=== PATIENT | male | born 1950 | race Caucasian/White ===

== ENCOUNTER 2016-10-22 15:44 | Emergency (ER) | payer MEDICARE, OTHER ==
[~2016-10-22] VITALS: Ht 177.8 cm; Wt 66.5 kg
[~2016-10-22 15:44] MED LIST: AMAN100C65 PO; CLON-202 PO; CLON0.5T4 PO; ENTA200T PO; ESCI10TA44 PO; HYDR-4246 PO; TAMS0.4C46 PO; [UNRECOGNIZED DRUG - CODE] PO
[2016-10-22 15:46] VITALS: Ht 177.8 cm; Wt 66.5 kg
--- OUTSIDE RECORDS SUMMARY | 2016-10-22 15:47 | XMS REPORT | Continuity of Care Document ---
Author Author [facility] Address Unknown Phone Unavailable Allergies Active Description Code Type Severity Reaction Onset Reported/Identified Relationship to Patient Clinical Status Yes ADHESIVE 1/2"[id number] Drug Allergy N/A N/A Yes NKDA N/A N/A Medications Medication Packaging Start Date Stop Date Route Dosage Sig PP_[id number] 03/07/2011 ORAL daily PP_00000001357 03/09/2014 Oral PP_00000004762 TAB 03/13/2014 ORAL three times daily PP_00000011168 03/30/2014 Oral PP_00000006009 04/07/2014 ORAL bedtime PP_00000006467 04/10/2014 ORAL three times daily PP_00000011841 07/10/2014 ORAL daily PP_00000010378 09/28/2014 Oral PP_00000006009 10/28/2014 ORAL bedtime PP_00000010378 12/24/2014 Oral PP_00000011168 01/11/2015 Oral PP_00000001357 TAB 03/23/2015 Oral three times daily Problems Procedures Results Encounters ACCT No. Visit Date/Time Discharge Status Pt. Type Provider Facility Loc./Unit Complaint [id number] 08/16/2016 16:48:25 08/16/2016 16:48:25 DIS Outpatient [id number] 08/15/2016 13:56:10 08/15/2016 13:56:10 DIS Outpatient [id number] 07/25/2016 11:15:29 07/25/2016 11:15:29 DIS Outpatient [id number] 06/22/2016 09:56:18 06/22/2016 09:56:18 DIS Outpatient [id number] 06/21/2016 15:39:59 06/21/2016 15:40:00 DIS Outpatient [id number] 06/21/2016 14:02:20 06/21/2016 14:02:21 DIS Outpatient [id number] 06/21/2016 13:58:05 06/21/2016 13:58:06 DIS Outpatient [id number] 04/27/2016 16:58:23 04/27/2016 16:58:23 DIS Outpatient [id number] 04/27/2016 14:33:16 04/27/2016 14:33:16 DIS Outpatient [id number] 04/27/2016 13:54:38 04/27/2016 13:54:38 DIS Outpatient [id number] 04/27/2016 13:13:36 04/27/2016 13:13:36 DIS Outpatient [id number] 04/27/2016 13:13:35 04/27/2016 13:13:35 DIS Outpatient [id number] 04/27/2016 13:12:36 04/27/2016 13:12:36 DIS Outpatient [id number] 04/27/2016 12:16:52 04/27/2016 12:16:52 DIS Outpatient [id number] 04/27/2016 12:16:38 04/27/2016 12:16:38 DIS Outpatient [id number] 04/27/2016 12:15:53 04/27/2016 12:15:53 DIS Outpatient [id number] 04/27/2016 12:15:52 04/27/2016 12:15:52 DIS Outpatient [id number] 04/21/2016 11:48:29 04/21/2016 11:48:29 DIS Outpatient [id number] 04/21/2016 10:26:42 04/21/2016 10:26:42 DIS Outpatient [id number] 04/17/2016 14:52:29 04/17/2016 14:52:29 DIS Outpatient [id number] 04/17/2016 14:52:27 04/17/2016 14:52:27 DIS Outpatient [id number] 02/18/2016 11:12:14 02/18/2016 11:12:14 DIS Outpatient [id number] 02/17/2016 13:37:09 02/17/2016 13:37:10 DIS Outpatient [id number] 02/17/2016 13:37:05 02/17/2016 13:37:05 DIS Outpatient [id number] 02/17/2016 12:21:51 02/17/2016 12:21:52 DIS Outpatient [id number] 02/16/2016 15:24:56 02/16/2016 15:24:56 DIS Outpatient [id number] 07/26/2015 09:07:24 07/26/2015 09:07:24 DIS Outpatient [id number] 07/22/2015 06:37:05 07/22/2015 06:37:05 ACT Outpatient [id number] 07/16/2015 08:34:19 07/16/2015 08:34:19 DIS Outpatient [id number] 07/15/2015 16:37:53 07/15/2015 16:37:53 DIS Outpatient [id number] 07/13/2015 10:43:39 07/13/2015 10:43:41 DIS Outpatient [id number] 07/12/2015 13:15:11 07/12/2015 13:15:11 DIS Outpatient [id number] 07/12/2015 09:38:26 07/12/2015 09:38:26 DIS Outpatient [id number] 07/12/2015 09:38:25 07/12/2015 09:38:25 DIS Outpatient [id number] 07/12/2015 09:23:34 07/12/2015 09:23:37 DIS Outpatient [id number] 07/12/2015 09:21:39 07/12/2015 09:21:39 DIS Outpatient [id number] 02/03/2015 13:12:44 02/03/2015 23:59:59 CLS Outpatient [id number] 02/03/2015 09:30:05 02/03/2015 23:59:59 CLS Outpatient [id number] 02/03/2015 08:56:01 02/03/2015 23:59:59 CLS Outpatient [id number] 02/01/2015 14:16:08 02/01/2015 23:59:59 CLS Outpatient [id number] 02/01/2015 13:48:26 02/01/2015 23:59:59 CLS Outpatient [id number] 02/01/2015 13:06:54 02/01/2015 13:06:54 DIS Outpatient [id number] 02/01/2015 13:01:37 02/01/2015 13:01:37 DIS Outpatient [id number] 06/18/2014 15:49:00 06/18/2014 23:59:59 CLS Outpatient [id number] 04/13/2014 15:43:07 04/13/2014 23:59:59 CLS Outpatient [id number] 04/13/2014 15:43:00 04/13/2014 23:59:59 CLS Outpatient [id number] 04/13/2014 15:42:59 04/13/2014 23:59:59 CLS Outpatient [id number] 04/13/2014 15:43:09 04/13/2014 15:43:09 DIS Outpatient [id number] 04/10/2014 12:51:46 04/10/2014 12:51:46 DIS Outpatient [id number] 04/10/2014 12:40:36 04/10/2014 12:40:36 DIS Outpatient [id number] 04/10/2014 12:40:16 04/10/2014 12:40:16 DIS Outpatient [id number] 04/10/2014 12:05:03 04/10/2014 12:05:03 DIS Outpatient [id number] 04/10/2014 11:56:33 04/10/2014 11:56:34 DIS Outpatient [id number] 04/10/2014 11:56:15 04/10/2014 11:56:16 DIS Outpatient [id number] 04/10/2014 11:56:04 04/10/2014 11:56:07 DIS Outpatient [id number] 04/10/2014 11:55:53 04/10/2014 11:55:55 DIS Outpatient [id number] 04/10/2014 10:56:51 04/10/2014 10:56:51 DIS Outpatient [id number] 04/10/2014 10:56:26 04/10/2014 10:56:27 DIS Outpatient [id number] 08/21/2016 16:26:20 DIS Outpatient [id number] 08/16/2016 15:53:25 DIS Outpatient [id number] 08/16/2016 15:46:49 DIS Outpatient [id number] 08/16/2016 14:38:00 Document Registration [id number] 08/16/2016 14:32:21 DIS Outpatient [id number] 08/16/2016 14:22:45 DIS Outpatient [id number] 08/16/2016 14:22:28 DIS Outpatient [id number] 08/16/2016 14:21:13 DIS Outpatient [id number] 08/16/2016 14:20:57 DIS Outpatient [id number] 08/16/2016 14:19:40 DIS Outpatient [id number] 06/21/2016 16:09:27 DIS Outpatient [id number] 06/21/2016 14:09:00 Document Registration [id number] 04/28/2016 15:20:55 Document Registration [id number] 04/28/2016 11:07:59 DIS Outpatient [id number] 04/28/2016 11:07:56 DIS Outpatient [id number] 04/28/2016 10:05:29 DIS Outpatient [id number] 04/28/2016 06:32:00 Document Registration [id number] 04/27/2016 17:27:08 Document Registration [id number] 03/27/2016 16:38:49 DIS Outpatient [id number] 03/27/2016 16:36:56 DIS Outpatient [id number] 03/16/2016 08:36:53 ACT Outpatient [id number] 03/16/2016 08:32:11 ACT Outpatient [id number] 03/16/2016 08:32:10 ACT Outpatient [id number] 03/16/2016 08:32:09 ACT Outpatient [id number] 03/16/2016 08:28:32 ACT Outpatient [id number] 03/16/2016 08:27:03 ACT Outpatient [id number] 03/16/2016 08:26:08 ACT Outpatient [id number] 03/16/2016 08:26:04 ACT Outpatient [id number] 03/16/2016 07:36:32 ACT Outpatient [id number] 03/16/2016 07:33:14 ACT Outpatient [id number] 03/16/2016 07:32:19 ACT Outpatient [id number] 03/02/2016 14:14:38 Document Registration [id number] 03/02/2016 13:27:00 Document Registration [id number] 03/02/2016 13:26:00 Document Registration [id number] 02/18/2016 09:48:18 DIS Outpatient [id number] 02/18/2016 08:03:41 DIS Outpatient [id number] 02/18/2016 08:02:58 Document Registration [id number] 02/17/2016 12:28:00 Document Registration [id number] 02/17/2016 12:25:20 DIS Outpatient [id number] 02/17/2016 12:18:42 DIS Outpatient [id number] 02/17/2016 12:18:21 DIS Outpatient [id number] 08/27/2015 15:44:56 DIS Outpatient [id number] 08/27/2015 15:44:55 DIS Outpatient [id number] 07/26/2015 09:07:23 DIS Outpatient [id number] 07/13/2015 08:25:14 Document Registration [id number] 07/12/2015 17:15:54 Document Registration [id number] 07/12/2015 12:20:00 Document Registration [id number] 03/23/2015 12:08:36 Document Registration [id number] 03/23/2015 12:08:33 Document Registration [id number] 03/23/2015 12:08:30 Document Registration [id number] 03/23/2015 12:08:27 Document Registration [id number] 03/23/2015 12:08:23 Document Registration [id number] 03/23/2015 12:08:20 Document Registration [id number] 03/23/2015 12:08:17 Document Registration [id number] 03/23/2015 12:08:14 Document Registration [id number] 03/23/2015 12:08:11 Document Registration [id number] 03/23/2015 12:08:08 Document Registration [id number] 03/23/2015 12:08:05 Document Registration [id number] 03/23/2015 12:08:02 Document Registration [id number] 03/23/2015 12:07:59 Document Registration [id number] 03/23/2015 12:07:55 Document Registration [id number] 02/03/2015 09:11:42 Document Registration [id number] 02/03/2015 08:55:59 Document Registration [id number] 02/02/2015 07:10:34 Document Registration [id number] 02/02/2015 07:10:31 Document Registration [id number] 02/02/2015 07:10:28 Document Registration [id number] 02/01/2015 13:09:00 Document Registration [id number] 02/01/2015 13:05:00 Document Registration [id number] 01/12/2015 07:01:18 Document Registration [id number] 01/12/2015 07:01:15 Document Registration [id number] 01/12/2015 07:01:12 Document Registration [id number] 01/12/2015 07:01:09 Document Registration [id number] 01/12/2015 07:01:07 Document Registration [id number] 01/12/2015 07:01:04 Document Registration [id number] 01/12/2015 07:01:01 Document Registration [id number] 01/12/2015 07:00:59 Document Registration [id number] 01/12/2015 07:00:21 Document Registration [id number] 12/24/2014 08:25:02 Document Registration [id number] 12/24/2014 08:24:59 Document Registration [id number] 12/24/2014 08:24:55 Document Registration [id number] 10/28/2014 13:06:12 Document Registration [id number] 10/28/2014 13:06:09 Document Registration [id number] 10/28/2014 13:06:06 Document Registration [id number] 10/28/2014 13:06:02 Document Registration [id number] 09/30/2014 12:55:22 Document Registration [id number] 09/28/2014 10:27:18 Document Registration [id number] 09/28/2014 10:26:54 Document Registration [id number] 09/28/2014 10:26:25 Document Registration [id number] 07/13/2014 10:31:08 Document Registration [id number] 07/11/2014 08:45:08 Document Registration [id number] 04/10/2014 11:03:00 Document Registration [id number] 04/10/2014 11:02:00 Document Registration
--- OUTSIDE RECORDS SUMMARY | 2016-10-22 15:48 | XMS REPORT | Referral Summary ---
Author Organization Unknown Address Unknown Phone Unavailable Care Team Providers Care [place] Tier Name Role Phone Kate New Primary Care Physician [phone] Encounter VC Date(s): 07/27/14 - 07/27/14 [facility] [address] [place] [address] Discharge Disposition: Home or Self Care Attending Physician: Kyle Gregorio MD Admitting Physician: Kyle Gregorio MD Vital Signs Most recent to 1 oldest [Reference Range]: Temperature Skin 36.4 degC [36-37 degC] (07/27/14 10:43 AM) Temperature Temporal 37.0 degC Artery [36.3-37.8 (07/27/14 12:30 PM) degC] Peripheral Pulse 63 bpm Rate [60-100 bpm] (07/27/14 6:40 AM) Heart Rate Monitored 80 bpm [60-100 bpm] (07/27/14 12:30 PM) Respiratory Rate 20 br/min [14-20 br/min] (07/27/14 12:30 PM) Blood Pressure 118/74 mmHg [90-140/60-90 mmHg] (07/27/14 12:30 PM) Most recent to 1 oldest [Reference Range]: SpO2 93 % (07/27/14 12:00 PM) Problem List Condition Effective Dates Status Health Status Informant HTN Active patient (hypertension)(Confi rmed) Parkinson's Active patient disease(Confirmed) Allergies, Adverse Reactions, Alerts No Known Allergies Medications acetaminophen 325 -650mg, Oral, q4hr, Pain Moderate (4-6), 0 Refill(s) Start Date: 07/27/14 Status: Ordered amantadine 100 mg oral tablet 2 tabs, Oral, BID, 0 Refill(s) Start Date: 07/24/14 Status: Ordered carvedilol 25 mg oral tablet 0.5 tabs, Oral, TID, 0 Refill(s) Start Date: 07/24/14 Status: Ordered clonazePAM 0.5 mg oral tablet 1 tabs, Oral, Bedtime (once a day), 0 Refill(s) Start Date: 07/24/14 Status: Ordered Comtan 200 mg, Oral, TID, 0 Refill(s) Start Date: 07/24/14 Status: Ordered FiberCon 625 mg oral tablet 1 tabs, Oral, 3x/Wk, 0 Refill(s) Start Date: 07/24/14 Status: Ordered Flomax 0.4 mg oral capsule 1 caps, Oral, Daily, 0 Refill(s) Start Date: 07/24/14 Status: Ordered lactulose 10 g/15 mL oral syrup 20 mL, Oral, Daily, # 480 mL, 0 Refill(s) Start Date: 07/24/14 Status: Ordered Lexapro 10 mg oral tablet 1 tabs, Oral, Daily, 0 Refill(s) Start Date: 07/24/14 Status: Ordered Results Chemistry Most recent to 1 oldest [Reference Range]: Sodium Lvl [136-144 138 mEq/L mEq/L] (07/27/14 7:14 AM) Potassium Lvl 3.9 mEq/L [3.6-5.1 mEq/L] (07/27/14 7:14 AM) Chloride [99-109 104 mEq/L mEq/L] (07/27/14 7:14 AM) CO2 [22-32 mEq/L] 29 mEq/L (07/27/14 7:14 AM) AGAP [3-20] 5 (07/27/14 7:14 AM) BUN [4-20 mg/dL] 17 mg/dL (07/27/14 7:14 AM) Glucose Lvl [70-100 101 mg/dL mg/dL] *HI* (07/27/14 7:14 AM) Creatinine Lvl 1.21 mg/dL [0.64-1.27 mg/dL] (07/27/14 7:14 AM) eGFR [>60] >60 1 (07/27/14 7:14 AM) Calcium Lvl 9.2 mg/dL [8.6-10.0 mg/dL] (07/27/14 7:14 AM) Blood Glucose, 96 mg/dL Capillary [70-100 (07/27/14 6:49 AM) mg/dL] 1Result Comment: Multiply eGFR results by 1.21 for race. Immunizations No data available for this section Procedures Procedure Date Related Diagnosis Body Site Replacement Stimulator Deep Brain Genera 07/27/14 (Bilateral)1 BATTERY REPLACEMENT X 2 Colonoscopy LEFT HAND - SURGERY - CUT STIMULATOR PLACEMENT 1auto-populated from documented surgical case Social History Social History Type Response Smoking Status Never smoker Assessment and Plan No data available for this section
--- OUTSIDE RECORDS SUMMARY | 2016-10-22 15:48 | XMS REPORT | Continuity of Care Document ---
Author Author [facility] Organization [facility] Address Unknown Phone Unavailable Support Name Relationship Address Phone SANDRA VARGAS DO Caregiver [facility] [address] [place], [place] [phone] RENATE ARCE MD Caregiver [address] [place] [address] [place] [phone] HOLLEY LARA Next Of Kin [address] [place] [address] Insurance Providers Payer Name Policy Number Subscriber Name Relationship Medicare [id number] Nimesh Lara 17 Self [place] [id number] Nimesh Lara 17 Self Advance Directives Directive Response Recorded Date/Time Advanced Directives Type DNR Documentation Living Will DPOA for Healthcare 8:45pm Problems Medical Problems Problem Onset Date Status Contusion of ribs Unknown Active Abrasion Unknown Active Constipation Unknown Active Fall Unknown Active Medications Medication Dose Route Sig Days/Qty Instructions Order Date Discontinued Date Status Amantadine Hcl 100 Mg PO TWICE A DAY 04/19/12 Active Tamsulosin Hcl 0.4 Mg PO DAILY 04/19/12 Active Entacapone 200 Mg PO THREE TIMES A DAY 04/19/12 Active Carbidopa/Levodopa 0.5 Tab PO THREE TIMES A DAY 04/19/12 Active Clonazepam 0.5 Mg PO BEDTIME 04/19/12 Active Escitalopram Oxalate 10 Mg PO DAILY 04/19/12 Active Clonazepam 0.5 Tab PO BEDTIME 08/18/14 Active Hydrocodone/Acetaminophen 1-2 Tab PO EVERY 4-6 HOURS For PAIN 30 Qty Active Social History Social History Problem Response Recorded Date/Time Chewing Tobacco Status No 05/20/2012 3:47pm Hx Substance Use No 08/18/2014 9:14pm Hx Alcohol Use No 08/18/2014 9:14pm Has the pt used tobacco in the last 12 months No 05/20/2012 3:47pm Query Response Start Date Stop Date Smoking Status Never smoker Hospital Discharge Instructions No hospital discharge instructions. Plan of Care No plan of care. Functional Status Query Response Date Recorded Physical Hygiene Self August 18, 2014 9:14pm Disabilities Visual August 18, 2014 9:14pm Devices Used Glasses Walker August 18, 2014 9:14pm Dressing Self August 18, 2014 9:14pm Ambulation Self August 18, 2014 9:14pm Diet Self August 18, 2014 9:14pm Mental Status Alert August 18, 2014 9:14pm Disabilities Visual August 18, 2014 9:14pm Devices Used Glasses Walker August 18, 2014 9:14pm Physical Hygiene Self August 18, 2014 9:14pm Dressing Self August 18, 2014 9:14pm Ambulation Self August 18, 2014 9:14pm Diet Self August 18, 2014 9:14pm Allergies, Adverse Reactions, Alerts Allergen Type Severity Reaction Status Last Updated DERMABOND Allergy Unknown Active 08/18/14 Immunizations Name Given Type Hx Influenza Vaccination N Pt refused Historical Hx Pneumococcal Vaccination No Historical Hx Tetanus, Diptheria, Pertussis Y 07/2014 Historical Hx Influenza Vaccination N Pt refused Historical Hx Tetanus, Diptheria, Pertussis Y 07/2014 Historical Vital Signs Acute Vital Signs Vital Response Date/Time Temperature (Fahrenheit) 97.4 deg F (96.8 - 99.1) Temperature (Calculated Celsius) 36.90263 degrees C (36.0 - 37.3) Pulse Rate (adult) 62 bpm (60 - 100) Respiratory Rate 20 breaths/min (10 - 20) O2 Sat by Pulse Oximetry 96 % (90 - 100) Blood Pressure 149/86 mm Hg Height 5 ft 10 in Weight 150 lb Body Mass Index 21.0 kg/m^2 Results Test Source Date Result Interp. Ref. Range Comments Alanine Aminotransferase (ALT/SGPT) August 18, 2014 10:00pm 40 U/L N 21- 72 Albumin August 18, 2014 10:00pm 4.2 G/DL N 3.5-5.0 Albumin/Globulin Ratio August 18, 2014 10:00pm 1.3 RATIO N 1.1-2.2 Alkaline Phosphatase August 18, 2014 10:00pm 76 U/L N 38-126 Amylase Level April 19, 2012 5:20pm 55 U/L N 30-110 Anion Gap August 18, 2014 10:00pm 11 MEQ/L N 5-15 Aspartate Amino Transf (AST/SGOT) August 18, 2014 10:00pm 37 U/L N 17-59 BUN/Creatinine Ratio August 18, 2014 10:00pm 20 RATIO N 6-26 Basophils # (Auto) August 18, 2014 10:00pm 0.1 T/MM3 N 0-0.2 Basophils (%) (Auto) August 18, 2014 10:00pm 0.8 % N 0-2 Blood Urea Nitrogen August 18, 2014 10:00pm 24.0 MG/DL H 9-20 Calcium Level August 18, 2014 10:00pm 9.2 MG/DL N 8.4-10.2 Calculated Osmolality August 18, 2014 10:00pm 276 MOSM/KG N 261-280 Carbon Dioxide Level August 18, 2014 10:00pm 28 MEQ/L N 22-30 Chemistry Specimen Hemolysis August 18, 2014 10:00pm 38 H 0-25 0-25: No Hemolysis.26-70: Slight Hemolysis - can falsely elevate K and Urine Protein. 71-285: Moderate Hemolysis - can falsely elevate K, Troponin I, CA 19-9, PTH, CSF GLucose, and Urine Protein, and can falsely decrease Phenytoin. 286-999: Gross Hemolysis - can falsely elevate K, Troponin I, CA 19-9, PTH, CSF Glucose, and Urine Protine, and can falsely decrease Phenytoin. Recommend specimen recollection. Chloride Level August 18, 2014 10:00pm 103 MEQ/L N 98-107 Creatinine August 18, 2014 10:00pm 1.2 MG/DL N 0.8-1.5 Eosinophils # (Auto) August 18, 2014 10:00pm 0.2 T/MM3 N 0-0.5 Eosinophils # (Manual) April 21, 2012 5:10am 0.0 T/MM3 N 0-0.5 Eosinophils % (Manual) April 21, 2012 5:10am 2.0 % N 0-4 Eosinophils (%) (Auto) August 18, 2014 10:00pm 3.5 % N 0-4 Globulin August 18, 2014 10:00pm 3.2 G/DL N 2.4-3.6 Glomerular Filtration Rate Calc August 18, 2014 10:00pm 61 - Glucose Level August 18, 2014 10:00pm 86 MG/DL N 75-110 Hematocrit August 18, 2014 10:00pm 43.7 % N 41-53 Hemoglobin August 18, 2014 10:00pm 15.2 GM/DL N 13.5-17.5 Icterus Index August 18, 2014 10:00pm < 2 0-7 Immature Granulocyte # (Auto) August 18, 2014 10:00pm 0.01 T/MM3 N 0.00- 0.03 Immature Granulocyte % (Auto) August 18, 2014 10:00pm 0.2 % N 0.0-0.5 Lab Scanned Report March 29, 2012 9:00pm LAB TEST FORM REQUEST [id number] - Lipase April 19, 2012 5:20pm 60 U/L N 23-300 Lymphocytes # (Auto) August 18, 2014 10:00pm 1.7 T/MM3 N 1-4.8 Lymphocytes # (Manual) April 21, 2012 5:10am 0.9 T/MM3 L 1-4.8 Lymphocytes % (Manual) April 21, 2012 5:10am 50.0 % H 23-45 Lymphocytes (%) (Auto) August 18, 2014 10:00pm 25.2 % N 23-45 Magnesium Level April 20, 2012 5:58pm 2.3 MG/DL N 1.6-2.3 COMMENT verbal order Mean Corpuscular Hemoglobin August 18, 2014 10:00pm 30.6 UUG N 26-34 Mean Corpuscular Hemoglobin Concent August 18, 2014 10:00pm 34.8 GM/DL N 31-37 Mean Corpuscular Volume August 18, 2014 10:00pm 88.1 UM3 N 80-100 Mean Platelet Volume August 18, 2014 10:00pm 10.0 UM3 N 9.4-12.4 Monocytes # (Auto) August 18, 2014 10:00pm 0.5 T/MM3 N 0-0.8 Monocytes # (Manual) April 21, 2012 5:10am 0.1 T/MM3 N 0-0.8 Monocytes % (Manual) April 21, 2012 5:10am 4.0 % N 0-9.0 Monocytes (%) (Auto) August 18, 2014 10:00pm 6.8 % N 0-9.0 Neutrophils # (Auto) August 18, 2014 10:00pm 4.2 T/MM3 N 1.8-7.7 Neutrophils # (Manual) April 21, 2012 5:10am 0.8 T/MM3 L 1.8-7.7 Neutrophils % (Manual) April 21, 2012 5:10am 44.0 % N 33-66 Neutrophils (%) (Auto) August 18, 2014 10:00pm 63.5 % N 33-66 Phosphorus Level April 20, 2012 5:58pm 2.7 MG/DL N 2.5-4.5 COMMENT verbal order Platelet Count August 18, 2014 10:00pm 170 T/MM3 N 130-400 Potassium Level August 18, 2014 10:00pm 4.6 MEQ/L N 3.6-5 RDW Standard Deviation August 18, 2014 10:00pm 41.7 FL N 36.9-50.2 Red Blood Count August 18, 2014 10:00pm 4.96 M/MM3 N 4.50-5.90 Sodium Level August 18, 2014 10:00pm 142 MEQ/L N 134-144 Total Bilirubin August 18, 2014 10:00pm 0.50 MG/DL N 0.20-1.30 Total Protein August 18, 2014 10:00pm 7.4 G/DL N 6.3-8.2 Troponin I April 19, 2012 5:20pm < 0.012 ng/ml 0-0.12 Turbidity August 18, 2014 10:00pm < 20 0-20 Urine Bilirubin April 20, 2012 11:33am Negative - Has specimen been collected/obtained? Y Urine Blood April 20, 2012 11:33am Negative - Has specimen been collected/obtained? Y Urine Collection Type April 20, 2012 11:33am Voided - Has specimen been collected/obtained? Y Urine Color April 20, 2012 11:33am Yellow - Has specimen been collected/obtained? Y Urine Glucose (UA) April 20, 2012 11:33am Negative - Has specimen been collected/obtained? Y Urine Ketones April 20, 2012 11:33am Trace H - Has specimen been collected/obtained? Y Urine Leukocyte Esterase April 20, 2012 11:33am Negative - Has specimen been collected/obtained? Y Urine Microscopic Not Indicated April 20, 2012 11:33am Not indicated - Has specimen been collected/obtained? Y Urine Nitrite April 20, 2012 11:33am Negative - Has specimen been collected/obtained? Y Urine Protein April 20, 2012 11:33am Negative - Has specimen been collected/obtained? Y Urine Specific [place] April 20, 2012 11:33am 1.000 L - Has specimen been collected/obtained? Y Urine Turbidity April 20, 2012 11:33am Clear - Has specimen been collected/obtained? Y Urine Urobilinogen April 20, 2012 11:33am Normal EU/DL - Has specimen been collected/obtained? Y Urine pH April 20, 2012 11:33am 6.5 - Has specimen been collected/ obtained? Y Venous Blood Lactate April 19, 2012 5:20pm 1.3 MMOL/L N 0.6-2.2 White Blood Count August 18, 2014 10:00pm 6.6 T/MM3 N 4.5-11.0 Procedures No known history of procedures. Encounters Encounter Location Date/Time Registered Emergency Room [facility] 08/18/14 8:41pm Recent Diagnosis
--- NOTE | 2016-10-22 16:00 | NUR ---
[facility]
--- OUTSIDE RECORDS SUMMARY | 2016-10-22 16:01 | XMS REPORT | Continuity of Care Document ---
Author Author [facility] Address Unknown Phone Unavailable Allergies Active Description Code Type Severity Reaction Onset Reported/Identified Relationship to Patient Clinical Status Yes ADHESIVE 1/2"X6YD [id number] Drug Allergy N/A N/A Yes NKDA N/A [...] Status Pt. Type Provider Facility Loc./Unit Complaint [id number] 08/16/2016 16:48:25 08/16/2016 16:48:25 DIS Outpatient [id number] 08/15/2016 13:56:10 08/15/2016 13:56:10 DIS Outpatient [id number] 07/25/2016 11:15:29 07/25/2016 11:15:29 DIS Outpatient [id number] 06/22/2016 09:56:18 06/22/2016 09:56:18 DIS Outpatient [id number] 06/21/2016 15:39:59 06/21/2016 15:40:00 DIS Outpatient [id number] 06/21/2016 14:02:20 06/21/2016 14:02:21 DIS Outpatient [id number] 06/21/2016 13:58:05 06/21/2016 13:58:06 DIS Outpatient [id number] 04/27/2016 16:58:23 04/27/2016 16:58:23 DIS Outpatient [id number] 04/27/2016 14:33:16 04/27/2016 14:33:16 DIS Outpatient [id number] 04/27/2016 13:54:38 04/27/2016 13:54:38 DIS Outpatient [id number] 04/27/2016 13:13:36 04/27/2016 13:13:36 DIS Outpatient [id number] 04/27/2016 13:13:35 04/27/2016 13:13:35 DIS Outpatient [id number] 04/27/2016 13:12:36 04/27/2016 13:12:36 DIS Outpatient [id number] 04/27/2016 12:16:52 04/27/2016 12:16:52 DIS Outpatient [id number] 04/27/2016 12:16:38 04/27/2016 12:16:38 DIS Outpatient [id number] 04/27/2016 12:15:53 04/27/2016 12:15:53 DIS Outpatient [id number] 04/27/2016 12:15:52 04/27/2016 12:15:52 DIS Outpatient [id number] 04/21/2016 11:48:29 04/21/2016 11:48:29 DIS Outpatient [id number] 04/21/2016 10:26:42 04/21/2016 10:26:42 DIS Outpatient [id number] 04/17/2016 14:52:29 04/17/2016 14:52:29 DIS Outpatient [id number] 04/17/2016 14:52:27 04/17/2016 14:52:27 DIS Outpatient [id number] 02/18/2016 11:12:14 02/18/2016 11:12:14 DIS Outpatient [id number] 02/17/2016 13:37:09 02/17/2016 13:37:10 DIS Outpatient [id number] 02/17/2016 13:37:05 02/17/2016 13:37:05 DIS Outpatient [id number] 02/17/2016 12:21:51 02/17/2016 12:21:52 DIS Outpatient [id number] 02/16/2016 15:24:56 02/16/2016 15:24:56 DIS Outpatient [id number] 07/26/2015 09:07:24 07/26/2015 09:07:24 DIS Outpatient [id number] 07/22/2015 06:37:05 07/22/2015 06:37:05 ACT Outpatient [id number] 07/16/2015 08:34:19 07/16/2015 08:34:19 DIS Outpatient [id number] 07/15/2015 16:37:53 07/15/2015 16:37:53 DIS Outpatient [id number] 07/13/2015 10:43:39 07/13/2015 10:43:41 DIS Outpatient [id number] 07/12/2015 13:15:11 07/12/2015 13:15:11 DIS Outpatient [id number] 07/12/2015 09:38:26 07/12/2015 09:38:26 DIS Outpatient [id number] 07/12/2015 09:38:25 07/12/2015 09:38:25 DIS Outpatient [id number] 07/12/2015 09:23:34 07/12/2015 09:23:37 DIS Outpatient [id number] 07/12/2015 09:21:39 07/12/2015 09:21:39 DIS Outpatient [id number] 02/03/2015 13:12:44 02/03/2015 23:59:59 CLS Outpatient [id number] 02/03/2015 09:30:05 02/03/2015 23:59:59 CLS Outpatient [id number] 02/03/2015 08:56:01 02/03/2015 23:59:59 CLS Outpatient [id number] 02/01/2015 14:16:08 02/01/2015 23:59:59 CLS Outpatient [id number] 02/01/2015 13:48:26 02/01/2015 23:59:59 CLS Outpatient [id number] 02/01/2015 13:06:54 02/01/2015 13:06:54 DIS Outpatient [id number] 02/01/2015 13:01:37 02/01/2015 13:01:37 DIS Outpatient [id number] 06/18/2014 15:49:00 06/18/2014 23:59:59 CLS Outpatient [id number] 04/13/2014 15:43:07 04/13/2014 23:59:59 CLS Outpatient [id number] 04/13/2014 15:43:00 04/13/2014 23:59:59 CLS Outpatient [id number] 04/13/2014 15:42:59 04/13/2014 23:59:59 CLS Outpatient [id number] 04/13/2014 15:43:09 04/13/2014 15:43:09 DIS Outpatient [id number] 04/10/2014 12:51:46 04/10/2014 12:51:46 DIS Outpatient [id number] 04/10/2014 12:40:36 04/10/2014 12:40:36 DIS Outpatient [id number] 04/10/2014 12:40:16 04/10/2014 12:40:16 DIS Outpatient [id number] 04/10/2014 12:05:03 04/10/2014 12:05:03 DIS Outpatient [id number] 04/10/2014 11:56:33 04/10/2014 11:56:34 DIS Outpatient [id number] 04/10/2014 11:56:15 04/10/2014 11:56:16 DIS Outpatient [id number] 04/10/2014 11:56:04 04/10/2014 11:56:07 DIS Outpatient [id number] 04/10/2014 11:55:53 04/10/2014 11:55:55 DIS Outpatient [id number] 04/10/2014 10:56:51 04/10/2014 10:56:51 DIS Outpatient [id number] 04/10/2014 10:56:26 04/10/2014 10:56:27 DIS Outpatient [id number] 08/21/2016 16:26:20 DIS Outpatient [id number] 08/16/2016 15:53:25 DIS Outpatient [id number] 08/16/2016 15:46:49 DIS Outpatient [id number] 08/16/2016 14:38:00 Document Registration [id number] 08/16/2016 14:32:21 DIS Outpatient [id number] 08/16/2016 14:22:45 DIS Outpatient [id number] 08/16/2016 14:22:28 DIS Outpatient [id number] 08/16/2016 14:21:13 DIS Outpatient [id number] 08/16/2016 14:20:57 DIS Outpatient [id number] 08/16/2016 14:19:40 DIS Outpatient [id number] 06/21/2016 16:09:27 DIS Outpatient [id number] 06/21/2016 14:09:00 Document Registration [id number] 04/28/2016 15:20:55 Document Registration [id number] 04/28/2016 11:07:59 DIS Outpatient [id number] 04/28/2016 11:07:56 DIS Outpatient [id number] 04/28/2016 10:05:29 DIS Outpatient [id number] 04/28/2016 06:32:00 Document Registration [id number] 04/27/2016 17:27:08 Document Registration [id number] 03/27/2016 16:38:49 DIS Outpatient [id number] 03/27/2016 16:36:56 DIS Outpatient [id number] 03/16/2016 08:36:53 ACT Outpatient [id number] 03/16/2016 08:32:11 ACT Outpatient [id number] 03/16/2016 08:32:10 ACT Outpatient [id number] 03/16/2016 08:32:09 ACT Outpatient [id number] 03/16/2016 08:28:32 ACT Outpatient [id number] 03/16/2016 08:27:03 ACT Outpatient [id number] 03/16/2016 08:26:08 ACT Outpatient [id number] 03/16/2016 08:26:04 ACT Outpatient [id number] 03/16/2016 07:36:32 ACT Outpatient [id number] 03/16/2016 07:33:14 ACT Outpatient [id number] 03/16/2016 07:32:19 ACT Outpatient [id number] 03/02/2016 14:14:38 Document Registration [id number] 03/02/2016 13:27:00 Document Registration [id number] 03/02/2016 13:26:00 Document Registration [id number] 02/18/2016 09:48:18 DIS Outpatient [id number] 02/18/2016 08:03:41 DIS Outpatient [id number] 02/18/2016 08:02:58 Document Registration [id number] 02/17/2016 12:28:00 Document Registration [id number] 02/17/2016 12:25:20 DIS Outpatient [id number] 02/17/2016 12:18:42 DIS Outpatient [id number] 02/17/2016 12:18:21 DIS Outpatient [id number] 08/27/2015 15:44:56 DIS Outpatient [id number] 08/27/2015 15:44:55 DIS Outpatient [id number] 07/26/2015 09:07:23 DIS Outpatient [id number] 07/13/2015 08:25:14 Document Registration [id number] 07/12/2015 17:15:54 Document Registration [id number] 07/12/2015 12:20:00 Document Registration [id number] 03/23/2015 12:08:36 Document Registration [id number] 03/23/2015 12:08:33 Document Registration [id number] 03/23/2015 12:08:30 Document Registration [id number] 03/23/2015 12:08:27 Document Registration [id number] 03/23/2015 12:08:23 Document Registration [id number] 03/23/2015 12:08:20 Document Registration [id number] 03/23/2015 12:08:17 Document Registration [id number] 03/23/2015 12:08:14 Document Registration [id number] 03/23/2015 12:08:11 Document Registration [id number] 03/23/2015 12:08:08 Document Registration [id number] 03/23/2015 12:08:05 Document Registration [id number] 03/23/2015 12:08:02 Document Registration [id number] 03/23/2015 12:07:59 Document Registration [id number] 03/23/2015 12:07:55 Document Registration [id number] 02/03/2015 09:11:42 Document Registration [id number] 02/03/2015 08:55:59 Document Registration [id number] 02/02/2015 07:10:34 Document Registration [id number] 02/02/2015 07:10:31 Document Registration [id number] 02/02/2015 07:10:28 Document Registration [id number] 02/01/2015 13:09:00 Document Registration [id number] 02/01/2015 13:05:00 Document Registration [id number] 01/12/2015 07:01:18 Document Registration [id number] 01/12/2015 07:01:15 Document Registration [id number] 01/12/2015 07:01:12 Document Registration [id number] 01/12/2015 07:01:09 Document Registration [id number] 01/12/2015 07:01:07 Document Registration [id number] 01/12/2015 07:01:04 Document Registration [id number] 01/12/2015 07:01:01 Document Registration [id number] 01/12/2015 07:00:59 Document Registration [id number] 01/12/2015 07:00:21 Document Registration [id number] 12/24/2014 08:25:02 Document Registration [id number] 12/24/2014 08:24:59 Document Registration [id number] 12/24/2014 08:24:55 Document Registration [id number] 10/28/2014 13:06:12 Document Registration [id number] 10/28/2014 13:06:09 Document Registration [id number] 10/28/2014 13:06:06 Document Registration [id number] 10/28/2014 13:06:02 Document Registration [id number] 09/30/2014 12:55:22 Document Registration [id number] 09/28/2014 10:27:18 Document Registration [id number] 09/28/2014 10:26:54 Document Registration [id number] 09/28/2014 10:26:25 Document Registration [id number] 07/13/2014 10:31:08 Document Registration [id number] 07/11/2014 08:45:08 Document Registration [id number] 04/10/2014 11:03:00 Document Registration [id number] 04/10/2014 11:02:00 Document Registration
--- OUTSIDE RECORDS SUMMARY | 2016-10-22 16:01 | XMS REPORT | Continuity of Care Document ---
Author Author [facility] Organization [facility] Address Unknown Phone Unavailable Support Name Relationship Address Phone SANDRA VARGAS DO Caregiver [facility] [address] [place], [place] [phone] RENATE ARCE MD Caregiver [address] [place] [address] [place] [phone] HOLLEY LARA Next Of Kin [address] [place] [address] Insurance Providers Payer Name Policy Number Subscriber Name Relationship Medicare [id number] Nimesh Lara 17 Self Everence [id number] Nimesh Lara 17 Self Advance Directives Directive [...] F (96.8 - 99.1) Temperature (Calculated Celsius) 36.69568 degrees C (36.0 - 37.3) Pulse Rate [...] 29, 2012 9:00pm LAB TEST FORM REQUEST [id number] - Lipase April 19, 2012 5:20pm 60 [...] Has specimen been collected/obtained? Y Urine Specific [place] April 20, 2012 11:33am 1.000 L - [...] Encounters Encounter Location Date/Time Registered Emergency Room [facility] 08/18/14 8:41pm Recent Diagnosis
--- NOTE | 2016-10-22 16:15 | NUR ---
REPORT TO EMERALD MOHAN
[2016-10-22 16:29] LABS: BASOPHILS % (AUTO) 0.5 % (0-2); EOSINOPHILS # (AUTO) 0.2 T/MM3 (0-0.5); EOSINOPHILS % (AUTO) 5.1 % (0-4); HCT - HEMATOCRIT 41.9 % (41-53); HGB - HEMOGLOBIN 14.3 GM/DL (13.5-17.5); LYMPHOCYTES # (AUTO) 1.1 T/MM3 (1-4.8); LYMPHOCYTES % (AUTO) 27.9 % (23-45); MEAN CORPUSCULAR HGB 30.4 UUG (26-34); MEAN CORPUSCULAR HGB CONC(MCHC 34.1 GM/DL (31-37); MEAN CORPUSCULAR VOLUME 89.1 UM3 (80-100); MEAN PLATELET VOLUME 10.2 UM3 (9.4-12.4); MONOCYTES # (AUTO) 0.3 T/MM3 (0-0.8); MONOCYTES % (AUTO) 6.9 % (0-9.0); NEUTROPHILS #(AUTO)-ABSOLUTE 2.4 T/MM3 (1.8-7.7); NEUTROPHILS % (AUTO) 59.6 % (33-66); WBC - WHITE BLOOD COUNT 3.9 T/MM3 (4.5-11.0)
--- NOTE | 2016-10-22 16:30 | ERPDOC ---
Departure Disposition Decision Date: October 22, 2016 Disposition Decision Time: 17:19 Disposition: 01 DISCHARGED HOME, SELF-CARE Impression Impression Impression: Primary Impression: Fall Encounter type: initial encounter Qualified Codes: W19.XXXA - Unspecified fall, initial encounter Additional Impression: Contusion Encounter type: initial encounter Contusion area: lower back Qualified Codes: S30.0XXA - Contusion of lower back and pelvis, initial encounter Severity: Moderate Condition: Stable Seen By: Mid-level only Referrals: SANDRA VARGAS DO (Family) Patient Instructions: Contusion in Adults (ED) Problems/Meds/Labs Reviewed?: Yes Medications reviewed and manag: Yes Additional Instructions: Take the [place] as needed for pain at home. Monitor his symptoms. If he should have any increased abdominal pain, vomiting, or fever then return to ER for reevaluation. If he is not improving over the next few days then please follow up with your primary care provider. Follow up care ordered?: Yes Mental Status: Alert Scripts Hydrocodone/Acetaminophen ([place] 5-325 Tablet) 5-325 Tablet 1 TAB PO Q6H Y for PAIN, #12 TAB 0 Refills Prov: OPAL JASON CAN MAKER 10/22/16 HPI - Fall/Injury General Chief Complaint: Fall Stated Complaint: FALL Time Seen by Provider: 15:55 Source: patient, family () Exam Limitations: no limitations HPI - Fall/Injury Initial Comments He has a history of Parkinsons disease. He fell at home a few days ago in the bedroom after he lost his balance. He was able to get up and walk afterwards. Has had an increase in pain in the right flank and some abdominal pain when he tries to sit up. He has an abrasion on the right posterior ribs with some bruising on the flank. His has given him some OTC medications but she feels his pain has gotten worse since the fall. Denies any vomiting or hematuria. Occurred At: home Onset: Rapid Duration: 1 week Severity: moderate Injuries/Pain Location: abdomen, back Context: lost balance Loss of Consciousness: no loss of consciousness Associated Symptoms: abdominal pain, DENIES: chest pain, confusion, dizziness, headache, lightheadedness, muscle spasms, nausea/vomiting, neck pain, ringing in ears, seizures, shortness of breath, slurred speech, trouble walking, vision changes Hx of Similar Symptoms: No Allergies: Uncoded Allergies: DERMABOND (Allergy, Unknown, 08/18/14) Past History Past Medical History GI: constipation Male: BPH Neurological: chronic disability, other Musculoskeletal: osteoarthritis Psychological: depression Surgical History General: other Joint: foot, other Family History Family History: Negative Vaccines Hx Influenza Vaccination: No (Pt refused) Hx Pneumococcal Vaccination: No Hx Tetanus, Diptheria, Pertuss: Yes (07/2014) Social History Smoking Status: Never smoker Substance Use Type: does not use Alcohol Intake: none Sexuality: female partner Review of Systems Constitutional Constitutional: DENIES: chills, dizziness, fatigue, fever, weakness Eyes Vision: DENIES: blurring, double vision ENMT Ears: DENIES: drainage, pain Sinuses: DENIES: congestion, rhinorrhea Mouth/Throat: DENIES: painful swallowing, scratchy throat, sore throat Cardiovascular Cardiac: DENIES: chest pain, orthopnea Rhythm/Rate: DENIES: irregular beat, palpitations Pulmonary Respiratory: DENIES: cough, dyspnea, sputum GI Upper Abdomen: pain, DENIES: nausea, vomiting Lower Abdomen: pain, DENIES: blood in stool, constipation, diarrhea General: DENIES: dysuria, frequency, hematuria, urgency Integumentary Skin: DENIES: rash Neurological General: DENIES: headache, numbness, tingling, weakness Physical Exam General General Nourishment: well nourished, well developed, appears stated age, no acute distress, adult General Body Habitus: well groomed Vitals and Pain First Documented Vital Signs Date Time Temp Pulse Resp B/P Pulse Ox O2 Delivery O2 Flow Rate FiO2 10/22/16 15:46 97.8 65 16 191/86 98 Room Air Weight: Kilograms: 66.500 Height (feet): 5 Height (inches): 10.00 Triage Pain Scale: RN VS reviewed by Provider: Yes Normal Exams: ENMT: No facial trauma, nasal exudates, pharyngeal erythema, or exudates are noted Neck: Full range of motion, without adenopathy, JVD, bruits or thyromegaly Chest/Resp: Clear all bejarano, with good airflow, and symmetry bilaterally CV: Regular rate and rhythm, without murmur or gallop, Pulses 2+ all extremities, capillary refill, <2 seconds all ext., no pedal edema noted Abdomen: Bowel sounds positive, soft, non-tender, non-distended, no hepatosplenomegaly, masses or bruits noted Lymphatic: No lymphadenopathy, or lymphedema noted Neurologic: Patient is alert, and oriented Psychiatric: Patient exhibits, appropriate attention, emotion and affect Differential Diagnoses Considering: Abrasion, Contusion, Fracture, Other (renal contusion, ) Progress Results/Orders Orders Procedure Category Date Status Time Cbc W/Auto LAB 10/22/16 Complete Diff-Reflex Manual Ua, Dip Wreflex LAB 10/22/16 Complete Microsc & Personal Security Specialist 16:05 Cmp - Comprehensive LAB 10/22/16 Complete Metabolic Hydrocodone/Apap PHA 10/22/16 In Process 5325 Prepack ([place] 5 17:30 Lab Results Laboratory Tests Test 10/22/16 16:19 10/22/16 16:32 White Blood Count 3.9T/MM3 Red Blood Count 4.70M/MM3 Hemoglobin 14.3GM/DL Hematocrit 41.9% Mean Corpuscular Volume 89.1UM3 Mean Corpuscular Hemoglobin 30.4UUG Mean Corpuscular Hemoglobin Concent 34.1GM/DL RDW Standard Deviation 43.4FL Platelet Count 150T/MM3 Mean Platelet Volume 10.2UM3 Immature Granulocyte % (Auto) 0.0% Neutrophils (%) (Auto) 59.6% Lymphocytes (%) (Auto) 27.9% Monocytes (%) (Auto) 6.9% Eosinophils (%) (Auto) 5.1% Basophils (%) (Auto) 0.5% Absolute Immature Granulocyte (auto 0.00T/MM3 Absolute Neutrophils (auto) 2.4T/MM3 Absolute Lymphocytes (auto) 1.1T/MM3 Absolute Monocytes (auto) 0.3T/MM3 Absolute Eosinophils (auto) 0.2T/MM3 Absolute Basophils (auto) 0.0T/MM3 Turbidity < 20 Sodium Level 147MEQ/L Potassium Level 4.3MEQ/L Chloride Level 106MEQ/L Carbon Dioxide Level 28MEQ/L Anion Gap 13MEQ/L Blood Urea Nitrogen 22.0MG/DL Creatinine 1.0MG/DL Glomerular Filtration Rate Calc 75 BUN/Creatinine Ratio 22RATIO Glucose Level 100MG/DL Calculated Osmolality 285MOSM/KG Calcium Level 9.1MG/DL Total Bilirubin 0.90MG/DL Icterus Index < 2 Aspartate Amino Transf (AST/SGOT) 20U/L Alanine Aminotransferase (ALT/SGPT) 29U/L Alkaline Phosphatase 92U/L Total Protein 7.0G/DL Albumin 4.2G/DL Globulin 2.8G/DL Albumin/Globulin Ratio 1.5RATIO Chemistry Specimen Hemolysis < 15 Urine Collection Type Cleancatch-midstream Urine Color Yellow Urine Turbidity Clear Urine pH 5.5 Urine Specific [place] >=1.030 Urine Protein Negative Urine Glucose (UA) Negative Urine Ketones Negative Urine Blood Trace-intact Urine Nitrite Negative Urine Bilirubin Negative Urine Urobilinogen 0.2EU/DL Urine Leukocyte Esterase Negative Urinalysis Comment Microscopic not ind. Medications Current ED Medications Acetaminophen/ Hydrocodone Bitart (NORCO 5 (PrePack)) 1 pack O ONCE SENT HOME ; Start 10/22/16 at 17:30; Stop 10/22/16 at 17:31 Progress Progress CBC, CMP, and UA today are normal. UA does show trace blood. His abdomen is non tender to palpation. Minimal bruising on his back. Will go ahead and let him go home. He only has pain when she tries to sit up or flexes his abdominal muscles so I do think that this is likely muscular. Will have him use some [place] for pain. Follow up with PCP if not improving. OPAL JASON APRN October 22, 2016 16:30
[2016-10-22 16:38] LABS: ALBUMIN 4.2 G/DL (3.5-5.0); ALBUMIN/GLOBULIN RATIO 1.5 RATIO (1.1-2.2); ALKALINE PHOSPHATASE 92 U/L (38-126); ALT (SGPT) 29 U/L (21-72); ANION GAP 13 MEQ/L (5-15); AST (SGOT) 20 U/L (17-59); BUN/CREATININE RATIO 22 RATIO (6-26); CALCIUM 9.1 MG/DL (8.4-10.2); CHLORIDE 106 MEQ/L (98-107); CO2 - CARBON DIOXIDE 28 MEQ/L (22-30); GLOMERULAR FILTRATION RATE 75; GLUCOSE 100 MG/DL (75-110); POTASSIUM 4.3 MEQ/L (3.6-5); SODIUM 147 MEQ/L (134-144)
[2016-10-22 16:46] LABS: BLOOD, URINE TRACE-INTACT (NEGATIVE); COLOR,URINE YELLOW (YELLOW); LEUKOCYTE ESTERASE ,URINE NEGATIVE (NEGATIVE); NITRITE,URINE NEGATIVE (NEGATIVE); UROBILINOGEN,URINE 0.2 EU/DL (NORMAL)
[2016-10-22] MEDS ORDERED: HYDR-4246 PO (17:19)
[2016-10-22] MEDS ORDERED: HYDROCODONE/APAP 5/325 (PrePack) SENT HOME ONE (17:30)
[2016-10-22 17:45] VITALS: BP 191/86; PULSE 65; RESP 16; TEMP 97.8; O2SAT 98
== END 2016-10-22 17:45 | disposition home or self-care (01) ==
LOC: ED 15:44
DX: S30.0XXA Contusion of lower back and pelvis, initial encounter (principal); W01.0XXA Fall on same level from slipping, tripping and stumbling without subsequent striking against object, initial encounter; Y93.9 Activity, unspecified; Y92.002 Bathroom of unspecified non-institutional (private) residence as the place of occurrence of the external cause; Y99.8 Other external cause status
CPT/HCPCS: 36415; 80053; 81003; 85025

== ENCOUNTER → 2016-11-02 | Outpatient (CLI) | payer MEDICARE, OTHER ==
[~2016-11-02] MED LIST changes: -CLON-202 PO; -ENTA200T PO
--- NOTE | 2016-11-03 08:36 | DI ---
Indication: ITS.REASON: R07.81 Pleurodynia; R10.31 Right lower quadrant pain PROCEDURE: RIBS RIGHT WITH AP CHEST: Encounter: Initial Comparison: August 18, 2014 FINDINGS: Chest: The lungs are clear. There is no abnormal airspace opacity, pleural effusion or pneumothorax identified. The heart size, pulmonary vasculature and mediastinum are within normal limits. Electronic stimulator type devices noted projecting over the chest bilaterally. AP and oblique views of the right ribs: No displaced rib fracture is seen. IMPRESSION: No acute cardiopulmonary abnormality. .
--- NOTE | 2016-11-03 08:37 | DI ---
Indication: ITS.REASON: R07.81 Pleurodynia; R10.31 Right lower quadrant pain PROCEDURE: LUMBAR SPINE COMP W/O BEND: Encounter: Initial Comparison: None Findings: Alignment of the lumbar spine is mildly straightened. No acute fracture or subluxation identified. The oblique views show no definite pars defects. Mild disk space narrowing at L3-L4. Moderate to severe disk space narrowing at L4-L5. Degenerative facet disease at L5-S1. Impression: No acute fracture. .
--- NOTE | 2016-11-03 08:52 | DI ---
Indication: ITS.REASON: R07.81 Pleurodynia; R10.31 Right lower quadrant pain PROCEDURE: THORACIC SPINE SERIES, 3 VIEW: Encounter: Initial Comparison: None Findings: Alignment of the thoracic spine shows minimal curvature in the midportion. No acute fracture or subluxation seen. The vertebral body heights are maintained. Age-appropriate mild degenerative changes in the mid to lower disk spaces. Impression: No acute fracture. .
== END ==
LOC: IMA 17:28
PROVIDERS: ATTEND Internal Medicine
DX: R07.81 Pleurodynia (principal); R10.31 Right lower quadrant pain